=== PATIENT | male | born 1940 | race Caucasian/White ===

== ENCOUNTER 2019-05-05 14:34 | Emergency (ER) | payer OTHER, MEDICARE, BC ==
[~2019-05-05] VITALS: Ht 170.2 cm; Wt 77.1 kg
== END 2019-05-05 16:45 | disposition home or self-care (01) ==
LOC: ER 14:34
DX: S61.210A Laceration without foreign body of right index finger without damage to nail, initial encounter (principal); S20.419A Abrasion of unspecified back wall of thorax, initial encounter; W10.9XXA Fall (on) (from) unspecified stairs and steps, initial encounter; Z87.891 Personal history of nicotine dependence
CPT/HCPCS: 12001; 72070; 90471; 90714; 99283-25

== ENCOUNTER 2019-05-08 11:13 | Inpatient (IN) | payer MEDICARE, BC ==
[~2019-05-08] VITALS: Ht 172.7 cm; Wt 78.5 kg
--- NOTE | 2019-05-08 15:30 | NUR ---
REPORT RECEIVED FROM ER NURSE. NO ACUTE ISSUES UPON ARRIVAL TO MEDICAL UNIT. PATIENT NOTED TO HAVE BRUISING AND ABRASIONS ON HIS BACK FROM A FALL AT WORK EARLIER THIS WEEK. NO OTHER ISSUES NOTED AT THIS TIME. WILL CONTINUE TO MONITOR FOR CHANGES.
--- NOTE | 2019-05-08 18:32 | NUR ---
NO ACUTE ISSUES NOTED, PATIENT IS ALERT AND ORIENTED. NO CURRENT COMPLAINS OF PAIN OR DISCOMFORT NOTED. ECHO COMPLETE. WILL CONTINUE TO MONITOR FOR CHANGES.
[2019-05-09 04:51] LABS: Anion Gap 3 mmol/L (6-16); Blood Urea Nitrogen 19 mg/dL (8-24); Bun/Creatinine Ratio 22.5 (12.0-20.0); CO2, Blood 30 mmol/L (21-32); Calcium, Blood 8.5 mg/dL (8.5-10.1); Chloride, Blood 105 mmol/L (98-108); Creatinine, Blood 0.85 mg/dL (0.60-1.20); Glomerular Filtration Rate >60 (60-); Glucose, Blood 107 mg/dL (70-99); Potassium, Blood 4.1 mmol/L (3.5-5.5); Sodium, Blood 138 mmol/L (136-145)
--- NOTE | 2019-05-09 06:32 | NUR ---
SHIFT SUMMARY PT IS A 78 Y/O MALE, ADMITTED FOR AFIB WITH RVR. HE IS A&O X 4, AND INDEPENDENT IN THE ROOM. PER THE RADIO PERFORMER, THE PT WAS IN A-FLUTTER IN THE 120S THAT STARTED AT APPROXIMATELY 1730. HIS RATE CAME DOWN TO THE 80S AFTER HIS SCHEDULED METOPROLOL, AND STAYED IN THAT RANGE THROUGH THE NIGHT. ALL OTHER VITALS STABLE. PT REPORTED PAIN IN HIS LOWER BACK FROM A FALL AT WORK BEFORE ADMISSION, WHICH TYLENOL DID NOT CONTROL WELL. THE HOSPITALIST BRISEYDA TERRY WAS CONSULTED AT 2044, AND PO ULTRAM WAS ORDERED, WHICH CONTROLLED HIS PAIN WELL. NO COMPLAINTS OF CHEST PAIN "UNLESS I TWIST WRONG", SOB, OR NAUSEA. PT'S REPEAT TROPONIN WAS ELEVATED SLIGHTLY FROM PREVIOUS, FROM 0.038 TO 0.043. THE HOSPITALIST BRISEYDA TERRY WAS CONSULTED AT 2249, WITH NO CHANGES IN ORDERS OR LABS AT THIS TIME. NO OTHER ACUTE CHANGES IN PT CONDITION NOTED DURING THE NIGHT. WILL CONTINUE TO MONITOR AND TREAT PER EMAR UNTIL HAND OFF TO DAY SHIFT.
--- NOTE | 2019-05-09 08:01 | NUR ---
PATIENT WAS OFFERED A SHOWER AND HE DECLINED DUE TO POSSIBLY BEING DISCHARGED, PATIENT STATED HE DID NOT WANT TO TAKE A SHOWER HERE IF HE WAS GOING HOME.
--- NOTE | 2019-05-09 17:02 | NUR ---
PT IS A/OX3, PLEASANT AND COOPERATIVE, THE PT IS UP IND IN HIS ROOM, THE PT DENIED ANY CHEST PAIN, SOB, N/V T/O THE DAY, HOWEVER, THE PT WAS MEDICATED FOR CHRONIC BACK PAIN X1 TODAY, CARDOLGY CONSULTED ON THE PT, AND THE PT IS SCHEDULED FOR A ANGIOGRAM IN THE AM, PT IS TO BE NPO AFTER MN, PT APPEARS TO BE BREATHING EASILY ON RA, CALL LIGHT IN REACH
--- NOTE | 2019-05-10 06:27 | NUR ---
SHIFT SUMMARY PATIENT IS ALERT AND ORIENTED. ON ROOM AIR. ON TELE, A-FLUTTER IN THE 80'S PER PCU OIL EXPERT. NO CHEST PAIN NOTED THROUGHOUT THE NIGHT. UP INDEPENDENT IN ROOM. NPO SINCE MIDNIGHT. PLAN IS FOR PT TO HAVE ANGIOGRAM THIS AM. NO NEW CHANGES. VITALS STABLE.
--- NOTE | 2019-05-10 08:50 | NUR ---
PATIENT DID NOT EAT BREAKFAST THIS SHIFT DUE TO BEING NPO AT THIS TIME.
--- NOTE | 2019-05-10 10:15 | NUR ---
0910 THE PT WAS TAKEN TO THE MEDICAL OFFICE SECRETARY A/OX3, APPEARED TO BE BREATHING EASILY ON RA, ACCOMPANIED
--- NOTE | 2019-05-10 10:17 | NUR ---
REPORT REPORT GIVEN TO GWEN DICKEY RN, PTS BELONGINGS SENT TO PCU # 3
--- NOTE | 2019-05-10 10:26 | NUR ---
PT TO ROOM PCU 3 FROM COMMUNITY EDUCATION SPECIALIST AT 1020. TR BAND IN PLACE ON RIGHT RADIAL, SOFT,NONTENDER ABOVE AND BELOW, PULSE PRESENT, CAP REFILE >3 SEC, DENIES PAIN NUM/T IN HAND. NO BLEEDING OR SHADOWING NOTE. PT TO ROOM VIA WHEELCHAIR, SBA TO TRANSFER. PT A&Ox4. CALM AND COOPERATIVE WITH CARE. PT >92% ON RA. DENIES PAIN AND NAUSEA. VSS. WILL CONTINUE TO MONITOR.
--- NOTE | 2019-05-10 13:17 | NUR ---
NOT CHANGES TO RIGHT RADIAL, RELEASED 2CC. WILL CONTINUE TO MONITOR.
--- NOTE | 2019-05-10 14:50 | NUR ---
NOTIFIED DR BRAY FOR BP DROP ASKING ABOUT PARAMETERS FOR BP MEDS AND CLARIFICATION REGARD XARELTO. NEW ORDERS FOR HOLD LISINIRIL IF SPB <100 AND START XARELTO 20MG QPM THIS EVENING. WILL CONTINUE TO MONITOR.
--- NOTE | 2019-05-10 16:39 | NUR ---
NO CHANGES TO RIGHT RADIAL SITE. A TOTAL OF 10CC HAS BEEN TAKEN OUT. WILL CONTINUE TO MONITOR.
--- NOTE | 2019-05-10 17:00 | NUR ---
SHIFT SUMMARY PT A&Ox4. CALM AND COOPERATIVE WITH CARE. PT RESTING IN BED DURING SHIFT. UP SBA FOR ASSIST WITH RIGHT RADIAL SITE. PT FROM INFUSION PHARMACIST DURING SHIFT. NO CHANGES TO RADIAL SITE. TR BAND HAS AIR REMOVED. PT DENIES PAIN, SOB AND N/V DURING SHIFT. TELE A-FLUTTER IN 80'S DURING SHIFT. VSS. NO OTHER ACUTE CHANGES NOTED DURING SHIFT. WILL CONTINUE TO MONITOR.
--- NOTE | 2019-05-10 17:56 | NUR ---
TR BAND REMOVAL - RIGHT RADIAL SITE ALL AIR REMOVED FROM TR BAND PER PROTOCOL. TR BAND REMOVED. NO BLEEDING OR HEMATOMA NOTED AT SITE. PROXIMAL TO SITE SHADOWED AND SLIGHT SWELLING NOTED, COBAN PLACED AND WILL CONTINUE TO MONITOR. TEGADERM DRESSING PLACED TO SITE. ARM BOARD IN PLACE. EDUCATED AND REMINDED PT NOT TO USE RIGHT ARM AND HAND. WILL CONTINUE TO MONITOR.
--- NOTE | 2019-05-10 19:45 | NUR ---
Jay of Care: Patient alert and oriented x4, sitting upright in bed watching tv. C/o back pain 4-04/29, x1 prn Ultram given and heat pad applied. Repositioning also effect to manage back pain. Denies dyspnea/SOB, but appears slightly SOB with exertion, recovers quickly. VS wnl, heart rhythm per telemetry shows A-flutter, rate 60's. Peripheral IV x1 to lt AC patent and intact. Ambulating to bathroom to void without difficulty. Call light in reach, makes needs known. Will continue to monitor for pain, safety, comfort.
--- NOTE | 2019-05-11 06:27 | NUR ---
Shift Summary: Patient slept well throughout shift, easily roused via verbal stimuli. C/o back pain effectively managed with prn Ultram x1 dose. continues to deny pain, discomfort, SOB, or dyspnea. VSS, O2-92-96% on RA. Ambulating without difficulty to bathroom. Rt radial access remains WNL, no s/s of bleeding or hematoma. Rt hand color, temp, sensation remain wnl. Call light in reach, makes needs known. Will continue to monitor until report to day shift RN.
--- NOTE | 2019-05-11 08:37 | NUR ---
ASSUMED CARE OF PT AT 0700. PT RESTING IN BED, UP ON SIDE OF BED FOR BREAKFAST. PT A&OX4. CALM AND COOPERATIVE WITH CARE. PT REPORTS WANTING TO GO HOME THIS AM. PT DENIES PAIN. PT O2 >92% ON RA, BREATHING EVEN AND UNLABORED AT REST. PT REPORTS SOB WITH BEGINING OF ACTIVITY. TELE AFLUTTER IN 80'S. RIGHT RADIAL SITE NO S/SX OF BLEEDING OR HEMATOMA, TEGADERM IN PLACE ON PUNCTURE SITE. ARM BOARD IN PLACE, SENSTATION INTACT, <3 SEC CAP REFILL. VSS. WILL CONTINUE TO MONITOR.
[2019-05-11] MEDS ORDERED: LISI5 PO (08:48)
[2019-05-11] MEDS ORDERED: XARELTO20 MG PO (08:49)
[2019-05-11] MEDS ORDERED: METO25 PO (08:49)
--- NOTE | 2019-05-11 10:54 | NUR ---
DISCHARGE SUMMARY PT A&Ox4. PLEASANT; CALM AND COOPERATIVE WITH CARE. PT RESTING IN BED DURING SHIFT. IND IN ROOM. NO CHANGES TO RIGHT RADIAL SITE. PT DENIES PAIN, SOB AND NAUSEA. VSS. NO OTHER ACUTE CHANGES. PT EDUCATED ON DISCHARGE INSTUCTIONS, MEDICATIONS, FOLLOW UP APPOINTMENTS, CHF AND POST CATH CARE. PRESCRIPTIONS SENT OVER TO [facility] PER PT REQUEST. PT LEFT ROOM AT 1050. PT STABLE UPON DISCHARGE.
== END 2019-05-11 10:50 | disposition home or self-care (01) | DRG 286 ==
LOC: ER 11:13 → MEDS 11:14 → PCU 14:54 → MEDS 15:07 → PCU 05-10 09:31
PROVIDERS: ADMIT Hospitalist
PROC: 4A023N7 Measurement of Cardiac Sampling and Pressure, Left Heart, Percutaneous Approach (ICD-10-PCS; principal; 2019-05-10)
PROC: B211YZZ Fluoroscopy of Multiple Coronary Arteries using Other Contrast (ICD-10-PCS; 2019-05-10)
DX: I48.2 Chronic atrial fibrillation (principal); I50.31 Acute diastolic (congestive) heart failure; W19.XXXA Unspecified fall, initial encounter; K21.9 Gastro-esophageal reflux disease without esophagitis; M54.9 Dorsalgia, unspecified
CPT/HCPCS: 36415; 71045; 80048; 83880; 84145; 84443; 84484; 85025; 93005; 93010; 93306; 93458; 96374; 99152; 99153; 99284-25; C1769; C1894; G0378; J1644; J1940; J2250; J3010; J7030; Q9967

== ENCOUNTER 2019-06-08 06:15 | Day surgery (SDC) | payer MEDICARE, BC ==
[~2019-06-08 06:15] MED LIST: LISI5 PO; METO25 PO; XARELTO20 MG PO
--- NOTE | 2019-06-08 08:25 | NUR ---
PT IN SR ON ARRIVAL. CARDIOVERSION CANCELED. NOTIFIED.
== END 2019-06-08 22:42 | disposition home or self-care (01) ==
LOC: MHTC 06:15
DX: I48.92 Unspecified atrial flutter (principal); I44.0 Atrioventricular block, first degree; I44.7 Left bundle-branch block, unspecified; Z79.01 Long term (current) use of anticoagulants; Z53.09 Procedure and treatment not carried out because of other contraindication
CPT/HCPCS: 93005; 93010

== ENCOUNTER → 2022-04-24 | Outpatient (CLI) | payer BC, MEDICARE | END | disposition home or self-care (01) | LOC: LAB SHORT 12:30 → LAB 12:30 | DX: L29.9 Pruritus, unspecified (principal) | CPT/HCPCS: 87070; 87077; 87147; 87186; 87205 ==

== ENCOUNTER → 2022-08-25 | Outpatient (CLI) | payer BC ==
[~2022-08-25] MED LIST changes: +ATOR10 PO; +ELIQUIS5 M2 PO; +ENTRESTO 24 MG1 EACH PO; +METO25ER PO
== END | disposition home or self-care (01) ==
LOC: LAB SHORT 12:15 → LAB 12:15
DX: R10.9 Unspecified abdominal pain (principal)
CPT/HCPCS: 87086

== ENCOUNTER 2022-08-30 06:58 | Day surgery (SDC) | payer OTHER, MEDICARE ==
[~2022-08-30] VITALS: Ht 170.2 cm; Wt 72.7 kg
--- NOTE | 2022-08-30 11:09 | NUR ---
10CC AIR REMOVED FROM R WRIST TR BAND. -BLEEDING OR SWELLING.
== END 2022-08-30 12:53 | disposition home or self-care (01) ==
LOC: MHTC 06:58
DX: I11.0 Hypertensive heart disease with heart failure (principal); I50.9 Heart failure, unspecified; R93.1 Abnormal findings on diagnostic imaging of heart and coronary circulation; I25.10 Atherosclerotic heart disease of native coronary artery without angina pectoris; E78.00 Pure hypercholesterolemia, unspecified; I42.8 Other cardiomyopathies; I48.0 Paroxysmal atrial fibrillation; I48.92 Unspecified atrial flutter; I08.1 Rheumatic disorders of both mitral and tricuspid valves; I44.1 Atrioventricular block, second degree; Z88.2 Allergy status to sulfonamides; Z86.73 Personal history of transient ischemic attack (TIA), and cerebral infarction without residual deficits
CPT/HCPCS: 76937; 85347; 92978; 93454; 93571; 99152; 99153; A9270; C1769; C1887; C1894; J1644; J2250; J3010; J7030; J7050; Q9967

== ENCOUNTER 2023-04-25 09:25 | Day surgery (SDC) | payer BC, MEDICARE ==
[~2023-04-25] VITALS: Ht 170.2 cm; Wt 62.2 kg
[2023-04-25] VITALS (15 sets, daily range): BP systolic 74–123; BP diastolic 32–76
--- NOTE | 2023-04-25 13:44 | NUR ---
REPORT RECIEVED. PT SITTING UP IN BED TOLERATING PO FLUIDS. ON ROOM AIR. VSS. RATES PAIN 3/10
--- NOTE | 2023-04-25 14:25 | NUR ---
Patient up to Ambulate independently. Gait steady. Dressing to procedure site clean, dry, intact with no visible drainage, swelling, erythema or bruising noted. Discharge instructions reviewed with patient AND . Patient verbalizes understanding. Copy given to patient to take home. Discharged via wheelchair to private car for ride home.
== END 2023-04-25 14:37 | disposition home or self-care (01) ==
LOC: ORSCMMR 09:25 → ORD 10:45 → ORSCMMR 10:45
PROVIDERS: Surgery
PROC: 0YU50JZ Supplement Right Inguinal Region with Synthetic Substitute, Open Approach (ICD-10-PCS; principal; 2023-04-25 10:45)
DX: K40.90 Unilateral inguinal hernia, without obstruction or gangrene, not specified as recurrent (principal); D36.0 Benign neoplasm of lymph nodes; I25.10 Atherosclerotic heart disease of native coronary artery without angina pectoris; Z86.73 Personal history of transient ischemic attack (TIA), and cerebral infarction without residual deficits; K21.9 Gastro-esophageal reflux disease without esophagitis; I48.91 Unspecified atrial fibrillation; Z79.899 Other long term (current) drug therapy
CPT/HCPCS: 88305; C1781; J0690; J2250; J2704; J3010; J7120

== ENCOUNTER 2023-05-05 09:10 | Inpatient (IN) | payer BC, MEDICARE ==
[~2023-05-05] VITALS: Ht 167.6 cm; Wt 63.4 kg
[2023-05-05 10:04] LABS: BASOPHILS PERCENT AUTO 0 % (0-2); EOSINOPHILS ABSOLUTE AUTO 0.27 K/mm3 (0.00-0.68); EOSINOPHILS PERCENT AUTO 1 % (0-6); Hematocrit 34.5 % (37.0-53.0); Hemoglobin 10.9 g/dL (13.5-17.5); IMMATURE GRAN ABSOLUTE AUTO 0.15 K/mm3 (0.00-0.10); IMMATURE GRAN PERCENT AUTO 1 % (0-1); LYMPHOCYTES ABSOLUTE AUTO 0.96 K/mm3 (0.84-5.20); LYMPHOCYTES PERCENT AUTO 4 % (21-46); MONOCYTES ABSOLUTE AUTO 1.14 K/mm3 (0.16-1.47); MONOCYTES PERCENT AUTO 4 % (4-13); Mean Corpuscular HGB Conc 31.6 g/dL (31.5-36.5); Mean Corpuscular Volume 89 fL (80-100); Mean Platelet Volume 11.1 fL (9.1-12.4); NEUTROPHILS ABSOLUTE AUTO 24.24 K/mm3 (1.96-9.15); NEUTROPHILS PERCENT AUTO 90 % (41-73); Platelet Count 474 K/mm3 (150-400); RDW Coefficient Variation 13.7 % (11.7-14.2); RDW Standard Deviation 44.3 fL (35.1-46.3); Red Blood Cell Count 3.89 M/mm3 (4.30-5.90); White Blood Cell Count 26.86 K/mm3 (4.00-11.30)
[2023-05-05 10:16] LABS: Albumin, Blood 2.7 g/dL (3.4-5.0); Albumin/Globulin Ratio 0.6 (0.8-1.8); Bilirubin, Total 0.4 mg/dL (0.1-1.0); Bun/Creatinine Ratio 30.1 (12.0-20.0); Calcium, Blood 9.5 mg/dL (8.5-10.1); Creatinine, Blood 0.93 mg/dL (0.60-1.20); Globulin, Blood 4.4 g/dL (2.2-4.0); Total Protein, Blood 7.1 g/dL (6.4-8.2)
[2023-05-05 13:45] LABS: Source, Urine Clean Catch
[2023-05-05 13:56] LABS: Appearance, Urine Hazy (Clear); Bilirubin, Urine Neg (Neg); Blood, Urine 3+ (Neg); Color, Urine Yellow (P-Yellow); Glucose Qualitative, Urine Neg (Neg); Ketones, Urine 1+ (Neg); Leukocyte Esterase, Urine Neg (Neg); Nitrite, Urine Neg (Neg); Protein, Urine 2+ (Neg); Specific Gravity, Urine 1.025 (1.003-1.022); Urobilinogen, Urine NORM (Normal)
[2023-05-05 14:52] LABS: White Blood Cells, Urine 0-2 /hpf (0-5)
[2023-05-05 14:53] LABS: Squamous Epithelial Cells Few /hpf (Few)
[2023-05-05 14:54] LABS: Amorphous Light (0-Heavy); Bacteria Few /hpf; Mucus Light (0-Heavy)
[2023-05-05 15:06] VITALS: BP 93/60
--- NOTE | 2023-05-05 17:09 | NUR ---
ADMISSION AND SHIFT SUMMARY PATIENT AND FAMILY EDUCATED ON FIRE SAFETY AND POLICY RELATED TO FLAMMABLES AND COMBUSTABLE ITEMS. PATIENT ALERT AND INTERACTIVE. ABLE TO COMMUNICATE NEEDS. PATIENT CONTINUES TO SPIT UP THICK SECRETIONS AND COMPLAINS OF PRESSURE IN EPIGASTRIC AREA. PATIENT STATES HE HAS NOT BEEN ABLE TO EAT OR KEEP EVEN LIQUIDS DOWN FOR A LONG TIME EVEN BEFORE HIS HERNIA SURGERY. PATIENT ABLE TO AMBULATE TO THE BATHROOM WITH STAND BY ASSIST. VSS. GI TO CONSULT BUT NOT AVAILABLE UNTIL THE . DR. BRINK NOTIFIED.
[2023-05-05 20:32] VITALS: BP 108/58
[2023-05-06 03:24] VITALS: BP 94/56
--- NOTE | 2023-05-06 04:48 | NUR ---
SHIFT SUMMARY PATIENT ALERT, PLEASANT AFFECT. DENIES PAIN NOR DISCOMFORT THIS SHIFT. DENIES FEELING SOB NOR DIZZY, MADDIE AFTER AMBULATING TO AND BACK FROM BATHROOM. CONTINUES TO HAVE SOFT BPs. ON TELE, INTERMITTANT AFIB TO SR 65, OCCATIONAL SINUS BETHANIE 53-58 WHILE ASLEEP. DID HAVE PRODUCTIVE COUGH BRIEFLY AT BEGINING OF SHIFT, CLEAR MUCUS. NO ACUTE CHANGES OVERNIGHT. PATIENT EDUCATED ON FIRE SAFETY AND RISK OF INJURY WHILE OXYGEN IN USE, VERBALIZED UNDERSTANDING, DENIES SMOKING NOR ACCESS TO SOURCES OF IGNITION. BED IN LOW POSITION, CALL LIGHT IN REACH.
[2023-05-06 05:49] LABS: BASOPHILS ABSOLUTE AUTO 0.14 K/mm3 (0.00-0.23); BASOPHILS PERCENT AUTO 1 % (0-2); EOSINOPHILS ABSOLUTE AUTO 1.27 K/mm3 (0.00-0.68); EOSINOPHILS PERCENT AUTO 5 % (0-6); Hematocrit 31.2 % (37.0-53.0); Hemoglobin 9.6 g/dL (13.5-17.5); IMMATURE GRAN ABSOLUTE AUTO 0.12 K/mm3 (0.00-0.10); IMMATURE GRAN PERCENT AUTO 1 % (0-1); LYMPHOCYTES ABSOLUTE AUTO 1.56 K/mm3 (0.84-5.20); LYMPHOCYTES PERCENT AUTO 7 % (21-46); MONOCYTES ABSOLUTE AUTO 1.13 K/mm3 (0.16-1.47); MONOCYTES PERCENT AUTO 5 % (4-13); Mean Corpuscular HGB 27.7 pg (26.0-34.0); Mean Corpuscular HGB Conc 30.8 g/dL (31.5-36.5); Mean Corpuscular Volume 90 fL (80-100); Mean Platelet Volume 11.7 fL (9.1-12.4); NEUTROPHILS ABSOLUTE AUTO 19.59 K/mm3 (1.96-9.15); NEUTROPHILS PERCENT AUTO 82 % (41-73); Platelet Count 429 K/mm3 (150-400); RDW Standard Deviation 46.1 fL (35.1-46.3); Red Blood Cell Count 3.46 M/mm3 (4.30-5.90); White Blood Cell Count 23.81 K/mm3 (4.00-11.30)
[2023-05-06 06:15] LABS: Bun/Creatinine Ratio 26.3 (12.0-20.0); Calcium, Blood 9.1 mg/dL (8.5-10.1); Creatinine, Blood 0.84 mg/dL (0.60-1.20)
[2023-05-06 07:39] VITALS: BP 98/59
--- NOTE | 2023-05-06 12:31 | NUR ---
PT DR BRINK, SECOND ORDER OF NS AT 125 IS DUPLICATE ORDER. CANCEL
--- NOTE | 2023-05-06 16:22 | NUR ---
0700 PT DENIES ANY INFLAMMABLE ITEMS
[2023-05-06 16:27] VITALS: BP 95/65
--- NOTE | 2023-05-06 16:41 | NUR ---
CALLED DR LION, RE BP AFTER ONE BAG IVF. DR ORDER ONE MORE BAG AT 125. DONE
--- NOTE | 2023-05-06 18:46 | NUR ---
PT QUITE PLEASANT TODAY. NO C/O PAIN NOTED. DR ORDERED IVF FOR ONE BAG THIS AM. SECOND ORDER PLACED R/T SOFT BP THIS AFT. PT DIET UPDATED. STATES STILL STRUGGLES TO EAT. RECOMMENDED EAT MEAT VEG FIRST THEN EAT BREAD. AT BEDSIDE TODAY. NO NEW CONCERNS NOTED. BED IN LOW POSITION, HARRY LITE IN REACH, CALLS APPROP
[2023-05-06 20:35] VITALS: BP 98/69
[2023-05-07 02:25] VITALS: BP 99/71
--- NOTE | 2023-05-07 04:53 | NUR ---
PATIENT REMAINES ALERT AND ORIENTED X4, COOPERATIVE WITH CARE. BP SOFT, BUT OTHERWISE VSS. 2X CALLS FROM TELE ALERTING ME A A SHORT RUN OF VTACK, AFIB OTHERWISE. PATIENT DOES BECOME TACKYCARDIC WITH AMBULATION SO WE KEPT HIS WALKS SHORT. HE REMAINED ASYMPTOMATIC, AND RECOVERED WELL. IV SALINE LOCKED AFTER 1X 1L NS. NO OTHER ISSUES TO REPORT.
[2023-05-07 07:48] VITALS: BP 89/61
[2023-05-07 07:51] LABS: BASOPHILS ABSOLUTE AUTO 0.11 K/mm3 (0.00-0.23); BASOPHILS PERCENT AUTO 1 % (0-2); EOSINOPHILS PERCENT AUTO 8 % (0-6); Hematocrit 26.8 % (37.0-53.0); Hemoglobin 8.5 g/dL (13.5-17.5); IMMATURE GRAN ABSOLUTE AUTO 0.08 K/mm3 (0.00-0.10); IMMATURE GRAN PERCENT AUTO 0 % (0-1); LYMPHOCYTES ABSOLUTE AUTO 1.06 K/mm3 (0.84-5.20); LYMPHOCYTES PERCENT AUTO 5 % (21-46); MONOCYTES ABSOLUTE AUTO 1.27 K/mm3 (0.16-1.47); MONOCYTES PERCENT AUTO 6 % (4-13); Mean Corpuscular HGB Conc 31.7 g/dL (31.5-36.5); Mean Corpuscular Volume 88 fL (80-100); Mean Platelet Volume 11.7 fL (9.1-12.4); NEUTROPHILS ABSOLUTE AUTO 18.01 K/mm3 (1.96-9.15); NEUTROPHILS PERCENT AUTO 81 % (41-73); Platelet Count 351 K/mm3 (150-400); RDW Coefficient Variation 13.9 % (11.7-14.2); RDW Standard Deviation 44.9 fL (35.1-46.3); Red Blood Cell Count 3.04 M/mm3 (4.30-5.90); White Blood Cell Count 22.23 K/mm3 (4.00-11.30)
[2023-05-07 08:50] LABS: Bun/Creatinine Ratio 26.2 (12.0-20.0); Calcium, Blood 8.4 mg/dL (8.5-10.1); Creatinine, Blood 0.76 mg/dL (0.60-1.20)
[2023-05-07 14:15] LABS: Hematocrit 29.9 % (37.0-53.0); Hemoglobin 9.4 g/dL (13.5-17.5)
--- NOTE | 2023-05-07 18:11 | NUR ---
SHIFT SUMMARY: PT A/O X 4, STANDBY ASSIST WITH GB/WALKER. PT PLEASANT AND COOPERATIVE. PT CONTINUES TO EXPERIENCE DIFFICULTY SWALLOWING, NO CHOKING INCIDENCES TODAY. PT NATHANIEL STOPPED FOR PROCEDURE ENDOSCOPY SCHEDULED ON SATURDAY. PT HAD SOFT BP'S AND WAS ASYMPTOMATIC. NO REPORTS FROM TELE. PT EDUCATED ON DANGERS OF SMOKING AND USING IGNITION SOURCES WHILE IN HOSPITAL. PT VU. PT HAD NO EVIDENCE OF USING IGNITION SOURCES WHILE ROUNDING.
--- NOTE | 2023-05-07 18:26 | NUR ---
REPORT GIVEN TO JAVIER KNOX
[2023-05-07 19:17] VITALS: BP 116/72
--- NOTE | 2023-05-08 04:18 | NUR ---
SHIFT SUMMARY PATIENT HAD NO ACUTE CHANGES. AXO X4 AND ONE ASSIST TO BSC W/GB. PIV REMAINS INTACT. TELE MONITOR AFIB 87. ON ROOM AIR. VSS/AFEBRILE. DENIES CHEST PAIN, SOB, AND N/V. REPORTS TAKING A FEW HOURS TO EAT DINNER. EDUCATED ON DANGERS OF SMOKING AND USING IGNITION SOURCE WHILE IN HOSPITAL. DENIES HAVING IGNITION SOURCE AND NO EVIDENCE OF IGNITION SOURCE. COOPERATIVE WITH CARE. CALL LIGHT IN REACH. BED IN LOWEST POSITION. WILL CONTINUE TO MONITOR UNTIL DAY SHIFT NURSE ASSUMES CARE.
[2023-05-08 04:37] VITALS: BP 98/60
[2023-05-08 05:29] LABS: BASOPHILS PERCENT AUTO 0 % (0-2); EOSINOPHILS ABSOLUTE AUTO 2.29 K/mm3 (0.00-0.68); EOSINOPHILS PERCENT AUTO 10 % (0-6); Hemoglobin 8.3 g/dL (13.5-17.5); IMMATURE GRAN ABSOLUTE AUTO 0.12 K/mm3 (0.00-0.10); IMMATURE GRAN PERCENT AUTO 1 % (0-1); LYMPHOCYTES ABSOLUTE AUTO 1.21 K/mm3 (0.84-5.20); LYMPHOCYTES PERCENT AUTO 5 % (21-46); MONOCYTES ABSOLUTE AUTO 1.38 K/mm3 (0.16-1.47); MONOCYTES PERCENT AUTO 6 % (4-13); Mean Corpuscular HGB 27.7 pg (26.0-34.0); Mean Corpuscular HGB Conc 31.9 g/dL (31.5-36.5); Mean Corpuscular Volume 87 fL (80-100); Mean Platelet Volume 11.3 fL (9.1-12.4); NEUTROPHILS ABSOLUTE AUTO 17.63 K/mm3 (1.96-9.15); NEUTROPHILS PERCENT AUTO 78 % (41-73); Platelet Count 358 K/mm3 (150-400); RDW Standard Deviation 43.4 fL (35.1-46.3); White Blood Cell Count 22.73 K/mm3 (4.00-11.30)
[2023-05-08 06:53] LABS: Bun/Creatinine Ratio 21.4 (12.0-20.0); Calcium, Blood 8.3 mg/dL (8.5-10.1); Creatinine, Blood 0.75 mg/dL (0.60-1.20); Potassium, Blood 3.8 mmol/L (3.5-5.5)
[2023-05-08 07:43] VITALS: BP 104/73
[2023-05-08 08:10] LABS: IRON BIND.CAP.(TIBC) 160 ug/dL (250-450); IRON SATURATION 9 % (15-55); IRON, SERUM 14 ug/dL (38-169); UIBC 146 ug/dL (111-343)
[2023-05-08 09:10] LABS: FERRITIN 90 ng/mL (30-400)
[2023-05-08 16:12] VITALS: BP 104/70
--- NOTE | 2023-05-08 19:24 | NUR ---
SHIFT SUMMARY- PT IS A/O, PLESANT AND COOPERATIVE. HE IS INDEPENDENT IN THE ROOM. HE IS HAVING DIFFICULTY EATING. HE HAD SEVERAL BOUTS OF VOMITING, BUT DENIED NAUSEA. C/O EPIGASTRIC DISCOMFORT. TYLENOL GIVEN AND WAS EFFECTIVE. NPO AFTER MIDNIGHT FOR AN UPPER SCOPE TOMORROW. HIS BED IS IN THE LOW POSITON AND CALL LIGHT IS WITIN REACH.
[2023-05-09] VITALS (21 sets, daily range): BP systolic 89–103; BP diastolic 58–77
--- NOTE | 2023-05-09 03:59 | NUR ---
SHIFT SUMMARY. SHIFT HAS BEEN UNREMARKABLE. PT IS AOX4, PLEASANT, COOPERATIVE WITH CARE. NO PAIN REPORTED THIS SHIFT. HAS BEEN SLEEPING THROUGH MOST OF SHIFT SINCE 2100 MED PASS. NPO SINCE MIDNIGHT PENDING PROCEDURE TODAY. CALLS APPROPRIATELY. INDEPENDENT WITHIN ROOM. BED LOCKED IN LOWEST POSITION. CALL LIGHT LEFT WITHIN REACH.
[2023-05-09 05:29] LABS: BASOPHILS ABSOLUTE AUTO 0.07 K/mm3 (0.00-0.23); BASOPHILS PERCENT AUTO 0 % (0-2); EOSINOPHILS ABSOLUTE AUTO 2.16 K/mm3 (0.00-0.68); EOSINOPHILS PERCENT AUTO 9 % (0-6); Hematocrit 26.8 % (37.0-53.0); Hemoglobin 8.4 g/dL (13.5-17.5); IMMATURE GRAN ABSOLUTE AUTO 0.14 K/mm3 (0.00-0.10); IMMATURE GRAN PERCENT AUTO 1 % (0-1); LYMPHOCYTES ABSOLUTE AUTO 1.06 K/mm3 (0.84-5.20); LYMPHOCYTES PERCENT AUTO 5 % (21-46); MONOCYTES ABSOLUTE AUTO 1.25 K/mm3 (0.16-1.47); MONOCYTES PERCENT AUTO 5 % (4-13); Mean Corpuscular HGB 27.2 pg (26.0-34.0); Mean Corpuscular HGB Conc 31.3 g/dL (31.5-36.5); Mean Corpuscular Volume 87 fL (80-100); Mean Platelet Volume 11.4 fL (9.1-12.4); NEUTROPHILS ABSOLUTE AUTO 18.74 K/mm3 (1.96-9.15); NEUTROPHILS PERCENT AUTO 80 % (41-73); Platelet Count 358 K/mm3 (150-400); RDW Standard Deviation 43.1 fL (35.1-46.3); Red Blood Cell Count 3.09 M/mm3 (4.30-5.90); White Blood Cell Count 23.42 K/mm3 (4.00-11.30)
[2023-05-09 06:05] LABS: Bun/Creatinine Ratio 20.9 (12.0-20.0); Calcium, Blood 8.8 mg/dL (8.5-10.1); Creatinine, Blood 0.77 mg/dL (0.60-1.20); Potassium, Blood 3.9 mmol/L (3.5-5.5)
--- NOTE | 2023-05-09 15:34 | NUR ---
PT HAS 22G IV TO RIGHT HAND THAT FLUSHES WELL.
--- NOTE | 2023-05-09 15:55 | NUR ---
DIFFICULT IV START. ATTEMPTED BY MULTIPLE NURSES. ULTIMATELY, GOT 18G IV IN L AC THAT FLUSHES WELL AND FLOWS TO GRAVITY.
--- NOTE | 2023-05-09 16:39 | NUR ---
05/09/[address] WALKER; SEE ANESTHESIA RECORDS.
--- NOTE | 2023-05-09 19:05 | NUR ---
PT TRANSFERED TO ICU 3 BED AT 1900, BEDSIDE REPORT GIVEN TO NICOLLE KNOX.
--- NOTE | 2023-05-09 19:26 | NUR ---
BRADYCARDIA AND TRANSFER TO ICU: PATIENT RETURNED TO ROOM AROUND 17:30 FROM PROCEDURE. DURING THE PROCEDURE, RN WAS NOTIFIED BY TELEMETRY THAT THE PATIENT WAS EXPERIENCING BRADYCARDIA LOW 24 BPM. DIRECTOR OF LEARNING REPORTED THAT THEY WERE AWARE AND TAKING CARE OF THIS FOR THE PATIENT. UPON RETURNING TO THE ROOM, PATIENT CONTINUED TO EXPERIENCE BRADYCARDIA IN THE MID-20S. PER WAFER SUBSTRATE TESTER, THE LENGTH OF TIME THAT THE PATIENT WAS IN THE 40'S, THEN TO THE 20S, THEN BACK TO THE 40', WAS AT OR OVER 30 SECONDS. PATIENT REPORTED FEELING "FUNNY" AND "HUNGRY". PATIENT DENIED CHEST PAIN, SHORTNESS OF BREATH OR LIGHTHEADEDNESS. PATIENT REPORTED SOME CHEST PRESSURE THAT HAS BEEN PRESENT SINCE PRIOR TO THIS ADMISSION RELATED TO SWALLOWING. PATIENT CONTINUED TO BE ALERT AND AT BASELINE MENTATION. FAMILY AT BEDSIDE. DISCUSSED WITH DR. LACKEY AND DR. DEAN. NEW ORDERS FROM DR. LACKEY TO TRANSFER TO PCU. RELATED TO STAFFING, PATIENT WAS TRANSFERED TO ICU. REPORT CALLED TO ABILIO RUIZ.
--- NOTE | 2023-05-09 20:22 | NUR ---
ASSUMED CARE PT ARRIVED ON UNIT AT 1849. PT IS A&O X4; SPO2 >92% ON RA; MAP >65; AND HR IN THE 100-110'S. PT STATES HE HAS SOME CP THAT HAS BEEN THERE FOR "SEVERAL MONTHS" AND WORSENS W/ SWALLOWING/LAYING DOWN. DENIES SOB, NAUSEA, NUMBNESS, OR TINGLING. PT STATES HE FEELS "SOMEWHAT WEAK", BUT OTHERWISE HAS NO COMPLAINTS.
--- NOTE | 2023-05-09 22:00 | NUR ---
UPDATE PT EDUCATED ON IGNITION RISK W/ OXYGEN USE. DENIES HAVING ANY IGNITION SOURCES.
--- NOTE | 2023-05-09 22:11 | NUR ---
UPDATE PT REQUESTED SCD'S TO BE REMOVED. EDUCATION GIVEN ON PURPOSE OF SCD'S. ADVISED PT TO REPOSITION SELF FREQUENTLY AND MOVE LEGS RANDOMLY.
[2023-05-10] VITALS (27 sets, daily range): BP systolic 80–128; BP diastolic 57–96
[2023-05-10 02:58] LABS: BASOPHILS ABSOLUTE AUTO 0.06 K/mm3 (0.00-0.23); BASOPHILS PERCENT AUTO 0 % (0-2); EOSINOPHILS ABSOLUTE AUTO 0.45 K/mm3 (0.00-0.68); EOSINOPHILS PERCENT AUTO 2 % (0-6); Hemoglobin 9.2 g/dL (13.5-17.5); IMMATURE GRAN ABSOLUTE AUTO 0.09 K/mm3 (0.00-0.10); IMMATURE GRAN PERCENT AUTO 0 % (0-1); LYMPHOCYTES ABSOLUTE AUTO 1.05 K/mm3 (0.84-5.20); LYMPHOCYTES PERCENT AUTO 5 % (21-46); MONOCYTES ABSOLUTE AUTO 1.16 K/mm3 (0.16-1.47); MONOCYTES PERCENT AUTO 5 % (4-13); Mean Corpuscular HGB 27.6 pg (26.0-34.0); Mean Corpuscular HGB Conc 31.7 g/dL (31.5-36.5); Mean Corpuscular Volume 87 fL (80-100); Mean Platelet Volume 10.7 fL (9.1-12.4); NEUTROPHILS ABSOLUTE AUTO 19.91 K/mm3 (1.96-9.15); NEUTROPHILS PERCENT AUTO 88 % (41-73); Platelet Count 360 K/mm3 (150-400); RDW Coefficient Variation 14.1 % (11.7-14.2); RDW Standard Deviation 44.3 fL (35.1-46.3); Red Blood Cell Count 3.33 M/mm3 (4.30-5.90); White Blood Cell Count 22.72 K/mm3 (4.00-11.30)
[2023-05-10 03:19] LABS: Bun/Creatinine Ratio 18.9 (12.0-20.0); Creatinine, Blood 0.85 mg/dL (0.60-1.20); Potassium, Blood 4.2 mmol/L (3.5-5.5)
--- NOTE | 2023-05-10 05:30 | NUR ---
SHIFT SUMMARY PT RESTED QUIETLY T/O NIGHT. CONTINUES TO DENY SOB OR NAUSEA. SPO2 >92% ON RA; MAP >65. PT'S ONLY COMPLAINT IS HE'S "TIRED". NO ACUTE EVENTS OVERNIGHT.
--- NOTE | 2023-05-10 07:00 | NUR ---
ASSUMED CARE PATIENT LYING IN BED WITH EYES CLOSED. BELONGINGS IN CHAIR BESIDE BED. NO VISITORS AT THIS TIME. MONITOR SHOWS AFIB WITH RATE 100'S. NO MEDICATIONS INF AT THIS TIME. REPORT RECEIVED FROM ABILIO VALVERDE
--- NOTE | 2023-05-10 08:13 | NUR ---
RESTART ELIQUIS SPOKE WITH DR. BRINK DURING ROUNDS REGARDING PATIENT'S DC'D ELIQUIS ORDER. VERBAL ORDER RECEIVED TO RESTART ELIQUIS AT PREVIOUS DOSING.
--- NOTE | 2023-05-10 10:00 | NUR ---
HR 230 WHILE PATIENT WAS UP IN ROOM WASHING FACE AND BRUSHING TEETH, HR INCREASED TO 230'S. UPON ENTERING ROOM PATIENT WAS SITTING ON SIDE OF BED. WHEN ASSESSED PATIENT STATES HE FEELS SHORT OF BREATH AND TIRED. ASSISTED PATIENT BACK TO BED TO LAY DOWN. HR RETURNED TO 120'S-150'S WITH REST. CARDIOLOGY CONTACTED TO NOTIFY OF EVENT. BP REMAINED STABLE WITH MAPS GREATER THAN 65. PATIENT'S SYMPTOMS RESOLVED WITH REST. NO NEW ORDERS FROM DR. KEARNEY (CARDIOLOGY).
--- NOTE | 2023-05-10 11:19 | NUR ---
Spiritual Care Attempted. Pt. is awake in bed and initially welcomes my visit. After introductions the Pt. verbalized that this might not be a good time to visit, and verbalized gratitude for the spiritual care attempt. Will remain available to the Pt.
--- NOTE | 2023-05-10 19:28 | NUR ---
SHIFT SUMMARY PATIENT HAD ONE EPISODE OF TACHYCARDIA-SEE PREVIOUS NURSE NOTE. NO OTHER TACHYCARDIC EVENTS DURING THE SHIFT. NO BRADYCARDIC EVENTS DURING SHIFT. PATIENT TOLERATED UP TO CHAIR WELL. DECREASED APPETITE. CT SCAN OF CHEST COMPLETED. NATHANIEL REMAINS DC'D AT THIS TIME DUE TO BLEEDING RISK. NO OTHER CHANGES DURING SHIFT.
--- NOTE | 2023-05-10 19:40 | NUR ---
ASSUMED CARE OF PT AT 1900. BEDSIDE REPORT DONE. PT IS ALERT AND ORIENTED. PLEASANT AND COOPERATIVE. PARTICIPATES IN BEDSIDE REPORT. IN NO DISTRESS. AFIB RATE CONTROLLED IN 80'S AND 90'S. REPORT CALLED TO ABILIO SPRING. ALLOWED FOR QUESTIONS. CALLED PT'S TO INFORM HER OF TRANSFER. PT ACCEPTING AND UNDERSTANDING TRANSFER TO PCU ROOM 19.
--- NOTE | 2023-05-10 20:21 | NUR ---
ASSUMED PT CARE FROM MERCEDZE KNOX IN ICU. PT TRANSFERED VIA WHEELCHAIR, ABLE TO AMBULATE FROM TO BED. A&OX4. HR SINUS TACH IN THE 110'S. DENIES ANY CHEST PAIN/PRESSURE AT THIS TIME. REPORTS PAIN WITH SWALLOWING. COUGHING UP MODERATE AMOUNTS OF CLEAR, SPUTUM AT THIS TIME. LUNG SOUNDS CLEAR BILATERALLY. BP SOFT, NOTED WITH RECORDED VITAL SIGNS. CALL LIGHT IN REACH.
[2023-05-11 00:51] VITALS: BP 90/58
[2023-05-11 03:53] VITALS: BP 90/55
--- NOTE | 2023-05-11 06:35 | NUR ---
SHIFT SUMMARY: NO ACUTE CHANGES NOTED THROUGHOUT SHIFT. SLEEPING IN BED WITH EYES CLOSED MAJORITY OF SHIFT. CALL LIGHT IN REACH. DENIES NEEDS.
[2023-05-11 07:40] LABS: Hematocrit 29.5 % (37.0-53.0); Hemoglobin 9.5 g/dL (13.5-17.5); Mean Corpuscular HGB 27.7 pg (26.0-34.0); Mean Corpuscular HGB Conc 32.2 g/dL (31.5-36.5); Mean Corpuscular Volume 86 fL (80-100); Mean Platelet Volume 10.7 fL (9.1-12.4); Platelet Count 406 K/mm3 (150-400); RDW Coefficient Variation 14.1 % (11.7-14.2); RDW Standard Deviation 43.8 fL (35.1-46.3); Red Blood Cell Count 3.43 M/mm3 (4.30-5.90); White Blood Cell Count 24.64 K/mm3 (4.00-11.30)
[2023-05-11 07:54] LABS: Bun/Creatinine Ratio 20.9 (12.0-20.0); Creatinine, Blood 0.76 mg/dL (0.60-1.20); Potassium, Blood 4.1 mmol/L (3.5-5.5)
[2023-05-11 08:23] VITALS: BP 91/61
[2023-05-11 08:41] LABS: BASOPHILS PERCENT MAN 0 % (0-2); EOSINOPHILS ABSOLUTE MAN 0.98 K/mm3 (0.00-0.68); EOSINOPHILS PERCENT MAN 4 % (0-6); LYMPHOCYTES ABSOLUTE MAN 0.24 K/mm3 (0.84-5.20); LYMPHOCYTES PERCENT MAN 1 % (21-46); MONOCYTES ABSOLUTE MAN 0.73 K/mm3 (0.16-1.47); MONOCYTES PERCENT MAN 3 % (4-13); NEUTROPHILS ABSOLUTE MAN 22.66 K/mm3 (1.96-9.15); SEG NEUTROPHILS PERCENT MAN 92 % (41-73); TOTAL CELLS COUNTED 100
[2023-05-11 13:04] VITALS: BP 100/56
[2023-05-11 16:45] VITALS: BP 95/64
--- NOTE | 2023-05-11 17:27 | NUR ---
PT HAS BEEN RESTING WELL IN BED T/O THE DAY. HE HAS BEEN UP TO BATHROOM WITHOUT ISSUES TODAY. SOFT PRESSURES NOTED TODAY BUT OTHERWISE VSS. DENES CP OR SOB. PER DR BRINK PT WILL BE GOING WITH DR SHARMA TOMORROW SO PT WILL BE NPO AT MIDNIGHT TONIGHT. PT TOLERATING FULL LIQUID DIET WELL. PT AND FAMILY ARE AWARE OF THE NO SMOKING IN ROOMS, PT AND FAMILY EXPRESSED UNDERSTANDING THAT NO IGNITION SOURCES ARE ALLOWED IN HOSPITAL ROOMS.
[2023-05-11 20:24] VITALS: BP 99/77
--- NOTE | 2023-05-11 21:04 | NUR ---
ASSUMED PT CARE FROM LETICIA KNOX ON . A&OX4. DENIES ANY SOB OR CHEST PAIN/PRESSURE. HR SR IN THE 90'S-100'S. O2 > 92% ON RA. BP SOFT, SEE RECORDED VITAL SIGNS. ENTRESTO HELD DUE TO MEDICATION PARAMETERS. PT REPORTS CONTINUED DIFFICULTY SWALLOWING STATING "IT FEELS LIKE A ROCK SITTING THERE" ANY INTAKE. MEDICATED FORBACK PAIN, SEE EMAR. WARM BLANKE PROVIDED FOR COMFORT. DENIES FURTHER NEEDS. CALL LIGHT IN REACH.
[2023-05-12] VITALS (20 sets, daily range): BP systolic 76–99; BP diastolic 54–77
[2023-05-12 04:04] LABS: BASOPHILS ABSOLUTE AUTO 0.12 K/mm3 (0.00-0.23); BASOPHILS PERCENT AUTO 1 % (0-2); EOSINOPHILS ABSOLUTE AUTO 1.63 K/mm3 (0.00-0.68); EOSINOPHILS PERCENT AUTO 7 % (0-6); Hematocrit 28.8 % (37.0-53.0); Hemoglobin 9.2 g/dL (13.5-17.5); IMMATURE GRAN ABSOLUTE AUTO 0.12 K/mm3 (0.00-0.10); IMMATURE GRAN PERCENT AUTO 1 % (0-1); LYMPHOCYTES ABSOLUTE AUTO 1.24 K/mm3 (0.84-5.20); LYMPHOCYTES PERCENT AUTO 5 % (21-46); MONOCYTES ABSOLUTE AUTO 1.21 K/mm3 (0.16-1.47); MONOCYTES PERCENT AUTO 5 % (4-13); Mean Corpuscular HGB 27.4 pg (26.0-34.0); Mean Corpuscular HGB Conc 31.9 g/dL (31.5-36.5); Mean Corpuscular Volume 86 fL (80-100); Mean Platelet Volume 10.7 fL (9.1-12.4); NEUTROPHILS ABSOLUTE AUTO 19.69 K/mm3 (1.96-9.15); NEUTROPHILS PERCENT AUTO 82 % (41-73); Platelet Count 407 K/mm3 (150-400); RDW Standard Deviation 43.7 fL (35.1-46.3); Red Blood Cell Count 3.36 M/mm3 (4.30-5.90); White Blood Cell Count 24.01 K/mm3 (4.00-11.30)
--- NOTE | 2023-05-12 12:11 | NUR ---
05/12/23 1211 Cleopatra Cueva History, Chart, Medications and Allergies reviewed before start of procedure. 3-LEAD EKG REVIEWED WITH PHYSICIAN PRIOR TO START OF PROCEDURE. MONITOR INTACT WITH CONTINUOUS PULSE OXIMETRY, CONTINUOUS END TITAL CO2, AND INTERMITTENT BLOOD PRESSURE. O2 VIA POM 10L INTACT THROUGHOUT SEDATION/PROCEDURE. SEE DR. PLASENCIA RECORDS FOR DETAILS.
--- NOTE | 2023-05-12 14:11 | NUR ---
PT RETURNS FROM OR WITH PEG TUBE PLACED. THERE IS NO ACTIVE BLEEDING NOTED AT THE SITE. PER DR DEAN THERE SHOULD BE NO USE OF THE PEG TUBE FOR 4 HOURS POST PLACEMENT.
--- NOTE | 2023-05-12 17:58 | NUR ---
PT WITH SOFT PRESSURES T/O THE DAY. DURING HIS PEG TUBE PLACEMENT OR STAFF STATES THAT PT BECAME BRADYCARDIC, THIS HAS RESOLVED BY THE TIME PT ARRIVED TO THE UNIT, AND NO ADDITIONAL BRADYCARDIA NOTED. PT'S PRESSURES HAVE BECOME MORE SOFT SINCE RETURNING TO ROOM, AND NOW COMPLAINS OF RIGHT SIDED WEAKNESS AND TINGLING TO RIGHT SIDE. DR TREJO IS CALLED, NEW ORDER WAS OBTAINED FOR 500ML BOLUS OF LR.
--- NOTE | 2023-05-12 20:22 | NUR ---
ASSUMED PT CARE FROM LETICIA KNOX ON . A&OX4. DENYING ANY SOB OR CHEST PRESSURE THIS EVENING. REPORTS OCCASIONAL SHARP MIDSTERNAL CHEST PAIN THAT HE STATES RESOLVES MOMENTARILY. DENIES ANY AT THIS TIME. WILL MONITOR. HR A-FIB IN THE 80'S. SOFT BP'S, SEE VITAL SIGNS RECORD. 500 ML FLUID BOLUS COMPLETED AT SHIFT CHANGE. MAP IS > 65 AT THIS TIME, WILL MONITOR. DENIES ANY DIZZIENESS/LIGHTHEADEDNESS. DENIES NAUSEA, HYPOACTIVE BOWEL TONES NOTED. PEG TUBE IN PLACED WITH C/D/I DRESSING COVERING. DENIES PAIN IN ABDOMEN. DENIES FURTHER NEEDS AT THIS TIME. CALL LIGHT IN REACH.
[2023-05-13] VITALS (11 sets, daily range): BP systolic 89–122; BP diastolic 52–75
[2023-05-13 04:08] LABS: BASOPHILS ABSOLUTE AUTO 0.08 K/mm3 (0.00-0.23); BASOPHILS PERCENT AUTO 0 % (0-2); EOSINOPHILS ABSOLUTE AUTO 0.85 K/mm3 (0.00-0.68); EOSINOPHILS PERCENT AUTO 3 % (0-6); Hematocrit 29.1 % (37.0-53.0); Hemoglobin 9.2 g/dL (13.5-17.5); IMMATURE GRAN ABSOLUTE AUTO 0.13 K/mm3 (0.00-0.10); IMMATURE GRAN PERCENT AUTO 1 % (0-1); LYMPHOCYTES ABSOLUTE AUTO 1.23 K/mm3 (0.84-5.20); LYMPHOCYTES PERCENT AUTO 5 % (21-46); MONOCYTES ABSOLUTE AUTO 1.18 K/mm3 (0.16-1.47); MONOCYTES PERCENT AUTO 5 % (4-13); Mean Corpuscular HGB 27.5 pg (26.0-34.0); Mean Corpuscular HGB Conc 31.6 g/dL (31.5-36.5); Mean Corpuscular Volume 87 fL (80-100); Mean Platelet Volume 11.1 fL (9.1-12.4); NEUTROPHILS PERCENT AUTO 86 % (41-73); Platelet Count 380 K/mm3 (150-400); RDW Coefficient Variation 14.1 % (11.7-14.2); RDW Standard Deviation 44.4 fL (35.1-46.3); Red Blood Cell Count 3.34 M/mm3 (4.30-5.90); White Blood Cell Count 24.77 K/mm3 (4.00-11.30)
[2023-05-13 05:09] LABS: Bun/Creatinine Ratio 24.2 (12.0-20.0); Creatinine, Blood 0.7 mg/dL (0.60-1.20); Potassium, Blood 4.2 mmol/L (3.5-5.5)
--- NOTE | 2023-05-13 06:18 | NUR ---
SHIFT SUMMARY: PT HAS HAD NOT ACUTE CHANGES NOTED DURING THIS SHIFT. MILD PAIN NOTED AT PEG TUBE SITE WHEN LYING FLAT BUT SUBSIDES WHEN SITTING UP SLIGHTLY IN BED. PO MEDICATIONS GIVEN WITH SIP OF WATER. PT STARTED ON MAINTIANCE FLUIDS DUE TO SOFT BP'S AND NPO STATUES. BP'S CONTINUE TO BE SOFT, MAP 65-68. PO MIDODRINE STARTED. PT ABLE TO TAKE WHOLE WITH SIP OF WATER. ASYMPTOMATIC WITH SOFT BP'S. CALL LIGHT IN REACH. BED IN LOW POSITION.
--- NOTE | 2023-05-13 08:20 | NUR ---
ASSUMED CARE / DR DEAN: ASSUMED CARE OF THIS PT AT APPROX 0700. ON ASSESSMENT, THE PT IS AWAKE, A&O TO ALL. HE IS PLEASANT & COOPERATIVE W/ CARE BUT DOES EXPRESS CONCERNS REGARDING LEARNING ABOUT NEW PEG TUBE. LS CLEAR, PT ON RA W/ O2 SATS > 95%. MONITOR SHOWS AFIB W/ HR 100s. SBP 80-90s, MAP > 65 ON AVG. THE PT HAS BEEN NPO S/P PEG TUBE PLACEMENT YESTERDAY. DENIES GI OR COMPLAINTS, CONTINENT OF BOTH BOWEL & BLADDER. SKIN CONDITION OVERALL INTACT. PT REPOSITIONS SELF IN BED PRN FOR COMFORT. NEW PEG TUBE SITE WNL; NO BLEEDING, REDNESS OR IRRITATION NOTED. PROVIDER AT BEDSIDE TO EVAL PT THIS AM. HE STS OKAY TO BEGIN USING PEG TUBE & WOULD LIKE DIETARY CONSULTED TO ORDER TUBE FEEDINGS. 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 NO OTHER CHANGES AT THIS TIME. WILL CONTINUE TO MONITOR & UPDATE NEEDED.
--- NOTE | 2023-05-13 09:20 | NUR ---
Lizz TREJO & GENEVIEVE: PROVIDERS HAVE BOTH BEEN AT BEDSIDE THIS AM TO EVAL PT. IVFs ORDERED TO BE DISCONTINUED & PARAMETERS REGARDING METOPROLOL ADMIN HAVE BEEN DISCUSSED R/T HYPOTENSION & MIDODRINE ORDERS. DR VALLEJO STS HE WILL REVIEW THE PT's ORDERS & ADJUST MEDS NEEDED SO THAT THEY MAY BE GIVEN THROUGH THE PEG TUBE. NO OTHER CHANGES AT THIS TIME.
--- NOTE | 2023-05-13 15:35 | NUR ---
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 See H&P for complete information. Pt sitting up in chair and also in chair at bedside. They were agreeable to a visit. Pt is awaiting biopsy results after surgical procedure yesterday for g-tube placement. Pt found with a lot of food/matter in esophagus and gastric mass nearly obstructing. Pt able to verbalize good understanding but states "it just isn't quite real yet". We discussed advanced care planning, AD, POLST forms, proxy medical decision maker and his wishes. He is not certain he would like to remain a full code at this time but understands that the orders in place are FULL CODE and is in agreement with leaving orders as is while he considers further. Reading materials provided to generate questions for his providers. Booklet, Hard Choices for [place] [employer] given and blank AD/POLST forms to review. I offered to help them complete AD if they would like. Time spent on assessment. Pt reports generalized aches and pains. He had an inguinal hernia repair approx 2 weeks ago and has chronic right shoulder pain. He declined any intervention as this discomfort is near baseline for him. We briefly discussed d/c planning re: having HH for f/u teaching of gtube use and care. Pt and expressed appreciation for the visit and are anxious to have biopsy results and next steps planned. I invited them to have staff contact us if they would like palliative care to make a return visit.
--- NOTE | 2023-05-13 18:40 | NUR ---
SHIFT SUMMARY: NO ACUTE CHANGES SINCE PRIOR UPDATES. PT REMAINS A&O, PLEASANT & COOPERATIVE. HE SEEMS IN GOOD SPIRITS THIS EVENING DESPITE HAVING MANY IN-DEPTH CONVERSATIONS & NEW EDUCATION REGARDING PEG TUBE USE. HE IS MOSTLY INDEPENDENT IN ROOM W/ SETUP ASSIST FOR CARE MEASURES, USING CALL LIGHT APPROPRIATELY PRN FOR ASSISTANCE. LS DIM IN BASES, PT REMAINS ON RA W/ O2 SATS > 95%. MONITOR SHOWS AFIB W/ HR 100-110s, SBP 90s, PT ASYMPTOMATIC. METOPROLOL HELD PER VS OUTSIDE OF PARAMETER, MIDODRINE HELD PER CJ. PT STARTED ON TUBE FEEDINGS THROUGH PEG TUBE THIS EVENING PER DIETARY ORDERS. TUBE FEED STOPPED AFTER APPROX 100 ML R/T PT REPORTING "FULLNESS" & DISCOMFORT. NO BM THIS SHIFT. VOIDS URINE W/O DIFFICULTY. SKIN CONDITION OVERALL INTACT, PEG TUBE SITE WNL; NO BLEEDING, REDNESS OR IRRITATION NOTED. WILL CONTINUE TO MONITOR & REPORT OFF TO ONCOMING RN.
--- NOTE | 2023-05-13 20:44 | NUR ---
ASSUMED PT CARE FROM JOSIAH KNOX ON . A&OX4. DENIES ANY CHEST PAIN/PRESSURE, SOB, OR NAUSEA THIS EVENING. STATES HE HAS CONTINUED TO SPIT UP PHLEGM, WHICH HAS BEEN DOING. HR IS SR/ST IN THE 80-100'S. BP SOFT WITH MAP > 65. O2 SATS > 92% WITH RESPIRATIONS EVEN AND UNLABORED. PEG TUBE IN PLACE, EVENING TUBE FEEDINGS STARTED. EDUCATION PROVIDED, WILL CONTINUE TO REINFORCE. INSTRUCTED TO CALL IF HIS STOMACH FEELS FULL. CALL LIGHT IN REACH.
[2023-05-14] VITALS (11 sets, daily range): BP systolic 76–115; BP diastolic 51–76
--- NOTE | 2023-05-14 01:50 | NUR ---
RECEIVED ORDER FOR PRN MIDODRINE DUE TO MAP < 65. WILL MONITOR BP.
[2023-05-14 04:34] LABS: Bun/Creatinine Ratio 31.2 (12.0-20.0); Calcium, Blood 8.7 mg/dL (8.5-10.1); Creatinine, Blood 0.64 mg/dL (0.60-1.20); Magnesium, Blood 2.2 mg/dL (1.6-2.4); Phosphorus, Blood 2.1 mg/dL (2.5-4.9)
--- NOTE | 2023-05-14 05:27 | NUR ---
SHIFT SUMMARY: PT TOLERATED PEG TUBE FEEDING WITHOUT PAIN OR NAUSEA. MEDICATIONS GIVEN THROGUH PEG TUBE WITHOUT DIFFICULTY. BP REMAINS SOFT WITH MAP > 65. CALL LIGHT IN REACH. BED IN LOW POSITION.
--- NOTE | 2023-05-14 08:30 | NUR ---
ASSUMED CARE: REPORT RECEIVED FROM ABILIO SPRING. ASSUMED CARE OF THIS PT AT APPROX 0700. ON ASSESSMENT, THE PT IS AWAKE, A&O TO ALL. HE IS AMBULATING INDEPENDENTLY IN THE ROOM & REQUIRING ONLY SETUP FOR CARE MEASURES. LS CLEAR, PT ON RA W/ O2 SATS > 95%. MONITOR SHOWS AFIB W/ BBB, HR 80-110s, INCREASED W/ EXERTION. BP SOFT W/ SBP 90s, MAP > 65 ON AVG. ASYMPTOMATIC OF THIS W/ NO DIZZINESS OR LIGHTHEADEDNESS REPORTED. PEG TUBE IN PLACE TO LEFT ABDOMEN IS CLAMPED BETWEEN BOLUS FEEDS. PT TOLERATING FEEDS WELL W/ NO C/O NAUSEA OR ABD DISCOMFORT. PT REPORTS NO BM SINCE PEG TUBE PLACEMENT BUT STS PASSING SMALL AMNTS FLATUS. VOIDS URINE W/O DIFFICULTY. SKIN OVERALL INTACT, PT REPOSITIONS SELF FOR COMFORT PRN. PEG TUBE SITE REMAINS WNL; NO REDNESS OR IRRITATION NOTED. PRIOR HERNIA REPAIR SURGICAL SITE TO RIGHT GROIN IS WNL; APPEARS TO BE HEALING WELL W/ NO DRAINAGE OR REDNESS NOTED. THE PT HAS BEEN EDUCATED R/T IGNITION SOURCES & RISK OF INJURY WHILE OXYGEN IS IN USE. PT DENIES SMOKING & VERBALIZES UNDERSTANDING. WILL CONTINUE TO MONITOR & UPDATE NEEDED.
--- NOTE | 2023-05-14 09:30 | NUR ---
DR TREJO: PROVIDER AT BEDSIDE THIS AM TO ABHI PT. DISCUSSED CONTINUED LOW SBP READING 90s & UNABLE TO GIVE SCHEDULED LOPRESSOR DUE TO HOLDING PARAMETERS. HE STS TO GIVE LOPRESSOR DOSES IF MAP > 65, ORDERS ADJUSTED TO REFLECT NEW HOLDING PARAMETERS. MIDODRINE DISCONTINUED & THE PT IS NOW SURGICAL STATUS W/ TELE. NOTIFIED PROVIDER THAT THE SAT TUTOR SHOULD BE COMING TO WORK W/ THE PT THIS SHIFT REGARDING FURTHER PEG TUBE & FEEDING INSTRUCTIONS/ EDUCATION. NO OTHER CHANGES AT THIS TIME.
--- NOTE | 2023-05-14 18:30 | NUR ---
ASSUMED CARE AT 1500, REPORT FROM JOSIAH. Tonya/Tonya/OX4, FAMILY AT BEDSIDE. SIPS ON CLEAR FLUIDS PER ORDERS, TUBE FEEDING ORDERED, TOLERATED WELL. TUBE PLACEMENT SITE DRY WITHOUT REDNESS OR DRAINAGE. BP SOFT, MD AWARE. MEDICATED PER PARAMETERS IN EVENING WITH METOPROLOL FOR HEART. AMBULATES WITH ROOM WITH STEADY GAIT, WILL CONTINUE TO MONITOR AND TREAT UNTIL CHANGE OF SHIFT.
[2023-05-15] VITALS (10 sets, daily range): BP systolic 72–98; BP diastolic 56–64
[2023-05-15 03:50] LABS: Hematocrit 27.7 % (37.0-53.0); Hemoglobin 8.8 g/dL (13.5-17.5); Mean Corpuscular HGB Conc 31.8 g/dL (31.5-36.5); Mean Corpuscular Volume 85 fL (80-100); Mean Platelet Volume 11.5 fL (9.1-12.4); Platelet Count 349 K/mm3 (150-400); RDW Coefficient Variation 14.1 % (11.7-14.2); RDW Standard Deviation 43.9 fL (35.1-46.3); Red Blood Cell Count 3.26 M/mm3 (4.30-5.90); White Blood Cell Count 24.63 K/mm3 (4.00-11.30)
--- NOTE | 2023-05-15 04:15 | NUR ---
T/F AND SUMMARY: REPORT RECIEVED FROM CIERA, DRAFTER CONSTRUCTION AND PT T/F VIA BED TO ROOM 332 AT 0400. REVIEWED AND AGREE TO NOCTE SHIFT ASSESSMENT FINDINGS. HE REMAINS A/OX4, IS SBA OOB FOR WEAKNESS AND CALLS APPROPRIATELY FOR ASSIST PRN. PT DENIES N/V AND ABDO DISCOMFORT/DISTENSION. PEG TUBE CLAMPED W/BOLUS TF'S TO BE RECIEVED PER RX'D SCHEDULE. CLEAR LIQ'S OK FOR SATIATION TOLERATED. TELEMETRY INTACT: PT IS A.FIB/A.FLUTTER AT 90'S-100'S BPM. BP'S REMAIN SOFT BUT PT IS ASYMPTOMATIC OF ALL S/S CARDIAC DISTRESS AND MAP>65. PLAN FOR D/C W/HOME HEALTH W/CONTINUED EDUCATION TO BE PROVIDED RE: TF PROCEDURE AND SCHEDULE, WILL ENSURE DAY STAFF ARE AWARE. NO ACUTE CHANGES, VSS/AFEBRILE. WCTM AND REPORT TO DAY RN.
[2023-05-15 04:21] LABS: Bun/Creatinine Ratio 29.2 (12.0-20.0); Calcium, Blood 8.5 mg/dL (8.5-10.1); Creatinine, Blood 0.65 mg/dL (0.60-1.20); Magnesium, Blood 2.1 mg/dL (1.6-2.4); Phosphorus, Blood 1.5 mg/dL (2.5-4.9); Potassium, Blood 3.9 mmol/L (3.5-5.5)
--- NOTE | 2023-05-15 05:02 | NUR ---
TRANSFER OF CARE NOTE GAVE REPORT TO MED FLOOR ABILIO GIRON ~0350 THIS AM. PT REMAINS A/Ox4 AND COOPERATIVE WITH CARE. ANSWERS QUESTIONS AND IS ABLE TO MAKE HIS NEEDS KNOWN. CARDIAC, REMAINS IN AFIB 70-90'S WITH NO C/O CP OR PRESSURE T/O THE NIGHT. SBP REMAINS SOFT AVERAGING IN THE 80-90'S, BUT MAP >65. DENIES ANY DIZZINESS OR PALPATIONS WITH ABULATION. RESPIRATORY, MAINTAINS SPO2 >90% ON RA WITH NO REPORTS OF SOB OR DYSPNEA. CONTINUES TO REPORT COUGHING UP THICK WHITE SPUTUM. GI/, PEG TUBE REMAINS PATENT AND FLUSHES WELL. PT TOLERATING TF WELL WITH NO REPORTS OF ABD DISCOMFORT OR N/V. TF ADMINISTERED PER ORDERS. ABD SOFT/NONTENDER, WITH BS PRESENT IN ALL QUADRANTS. ABLE ABULATE TO BRP WITH SBA. PT EDUCATED ON COMMON SOURCES OF IGNITION WELL NEED TO KEEP A SAFE ENVIRONMENT. PT VOICED UNDERSTANDING. NEW ORDERS AT THIS TIME. BARBIE LIMA UPON TRANSFER TO ROOM 332.
--- NOTE | 2023-05-15 07:28 | NUR ---
ASSUMED CARE OF PT- BEDSIDE REPORT COMPLETED. PT SLEEPING AT THE TIME OF BEDSIDE REPORT. PER REPORT PEG TUBE PATENT, KANGAROO PUMP AT THE BEDSIDE FOR TUBE FEEDINGS. FIRST FEEDING AT 0800. PT HAS A STAT ORDER FOR SODIUM PHOS AWAITING ARRIVAL FROM PHARMACY. NO S&S OF DISTRESS NOTED AT THE TIME OF REPORT.
--- NOTE | 2023-05-15 10:25 | NUR ---
CALLED DR BRINK- SPOKE TO DR DR VALLEJO, PT SBP 81 MAP 66. ORDER TO HOLD METOPROLOL FOR MAP LESS THAN 65. SPOKE TO , THE PT HAS SODIUM PHOS RUNNING AT 102ML/HR THAT MAY BE ELEVATING THE PRESSURE A LITTLE. RECIEVED AN ORDER TO HOLD THIS DOSE.
[2023-05-15] MEDS ORDERED: METO25 PO ×2 (11:17→11:18)
--- NOTE | 2023-05-15 14:23 | NUR ---
CALLED DR MCCLENDON- PT SODIUM PHOS WAS COMPLETED, WAITED 40 MIN TO AN HOUR POST IVF AND RECHECKED VITALS SBP 72/46 NOW. AWARE AND WILL COME SEE THE PT.
--- NOTE | 2023-05-15 19:42 | NUR ---
DISCHARGE NOTE- PT WAS GIVEN VERBAL AND WRITTEN DISCHARGE INSTRUCTIONS AND ACKNOWLEDGED UNDERSTANDING OF THEM.PT SPOUSE WAS PRESENT FOR DISCHARGE TEACHING IV AND TELE DC'D PRIOR TO DISCHARGE BY THE SQUEEZER OPERATOR. TUBE FEEDING COMPLETED PRIOR TO DISCHARGE HOME. PT UNABLE TO FARM [employer]ODUCTS SHIPPER METOPROLOL UNTIL TOMORROW MORNING. SPOKE TO DR TREJO, RECIEVED ORDER TO GIVE EVENING DOSE OF METOPROLOL PRIOR TO DISCHARGE IF THE PT MAP IS GREATER THAN 63. PT MAP WAS 65. MED WAS GIVEN, TUBE FEEDING COMPLETED AND PT WAS ESCORTED OUT VIA WC BY THE SQUEEZER OPERATOR. NO S&S OF DSISTRESS AT THE TIME OF DISCHARGE. MEDS REFAXED TO [facility] ON [address] PER PT REQUEST.
== END 2023-05-15 18:25 | disposition home health service (06) | DRG 374 ==
LOC: ER 09:10 → ICUE 13:23 → PCU 13:23 → MEDS 13:23 → ICUE 05-09 18:49 → PCU 05-10 20:01 → MEDS 05-15 03:57 → ENPENDDIS 05-15 10:30 → MEDS 05-15 18:25
PROVIDERS: Family Medicine; Physician Assistant; Surgery; ADMIT Internal Medicine
PROC: 3E03329 Introduction of Other Anti-infective into Peripheral Vein, Percutaneous Approach (ICD-10-PCS; principal; 2023-05-05)
PROC: 0DB98ZX Excision of Duodenum, Via Natural or Artificial Opening Endoscopic, Diagnostic (ICD-10-PCS; 2023-05-09)
PROC: 0DB48ZX Excision of Esophagogastric Junction, Via Natural or Artificial Opening Endoscopic, Diagnostic (ICD-10-PCS; 2023-05-09)
PROC: 0DH63UZ Insertion of Feeding Device into Stomach, Percutaneous Approach (ICD-10-PCS; 2023-05-12)
DX: C16.0 Malignant neoplasm of cardia (principal); A41.9 Sepsis, unspecified organism; N99.842 Postprocedural seroma of a genitourinary system organ or structure following a genitourinary system procedure; I50.22 Chronic systolic (congestive) heart failure; I48.20 Chronic atrial fibrillation, unspecified; E44.0 Moderate protein-calorie malnutrition; R04.2 Hemoptysis; Z51.5 Encounter for palliative care; R13.19 Other dysphagia; D64.9 Anemia, unspecified; R00.1 Bradycardia, unspecified; I11.0 Hypertensive heart disease with heart failure; K21.9 Gastro-esophageal reflux disease without esophagitis; Z79.01 Long term (current) use of anticoagulants; Z79.899 Other long term (current) drug therapy; Z98.890 Other specified postprocedural states; Z86.73 Personal history of transient ischemic attack (TIA), and cerebral infarction without residual deficits; Z88.2 Allergy status to sulfonamides; Z68.22 Body mass index [BMI] 22.0-22.9, adult
CPT/HCPCS: 36415; 71046; 71260; 74177; 80048; 80053; 81001; 82607; 82728; 82746; 83540; 83550; 83605; 83735; 83880; 84100; 84443; 84484; 85014; 85018; 85025; 85027; 85060; 87040; 88305; 88341; 88342; 88360; 92526; 92610; 93005; 93010; 93246; 96361; 96365-59; 99285-25; A9270; C9113; J0461; J0690; J2001; J2250; J2371; J2405; J2543; J2704; J7030; J7060; J7120; Q9967

== ENCOUNTER 2023-05-22 21:10 | Emergency (ER) | payer BC, MEDICARE ==
[~2023-05-22] VITALS: Ht 170.2 cm; Wt 59.0 kg
[~2023-05-22 21:10] MED LIST changes: +FURO20 PO
[2023-05-22 21:55] LABS: BASOPHILS PERCENT AUTO 0 % (0-2); EOSINOPHILS ABSOLUTE AUTO 0.99 K/mm3 (0.00-0.68); EOSINOPHILS PERCENT AUTO 4 % (0-6); Hematocrit 25.9 % (37.0-53.0); Hemoglobin 8.1 g/dL (13.5-17.5); IMMATURE GRAN ABSOLUTE AUTO 0.18 K/mm3 (0.00-0.10); IMMATURE GRAN PERCENT AUTO 1 % (0-1); LYMPHOCYTES ABSOLUTE AUTO 1.01 K/mm3 (0.84-5.20); LYMPHOCYTES PERCENT AUTO 4 % (21-46); MONOCYTES ABSOLUTE AUTO 1.58 K/mm3 (0.16-1.47); MONOCYTES PERCENT AUTO 6 % (4-13); Mean Corpuscular HGB 26.6 pg (26.0-34.0); Mean Corpuscular HGB Conc 31.3 g/dL (31.5-36.5); Mean Corpuscular Volume 85 fL (80-100); Mean Platelet Volume 10.5 fL (9.1-12.4); NEUTROPHILS ABSOLUTE AUTO 23.28 K/mm3 (1.96-9.15); NEUTROPHILS PERCENT AUTO 86 % (41-73); Platelet Count 368 K/mm3 (150-400); RDW Coefficient Variation 14.6 % (11.7-14.2); RDW Standard Deviation 45.1 fL (35.1-46.3); Red Blood Cell Count 3.05 M/mm3 (4.30-5.90); White Blood Cell Count 27.14 K/mm3 (4.00-11.30)
[2023-05-22 22:13] LABS: Albumin, Blood 2.5 g/dL (3.4-5.0); Albumin/Globulin Ratio 0.6 (0.8-1.8); Bilirubin, Total 0.5 mg/dL (0.1-1.0); Bun/Creatinine Ratio 24.9 (12.0-20.0); Creatinine, Blood 0.8 mg/dL (0.60-1.20); Globulin, Blood 4.2 g/dL (2.2-4.0); Potassium, Blood 4.6 mmol/L (3.5-5.5); Total Protein, Blood 6.7 g/dL (6.4-8.2)
[2023-05-22 23:30] LABS: International Normalized Ratio 1.19; Prothrombin Time Results 12.4 Sec (9.7-11.5)
[2023-05-23 00:45] VITALS: BP 91/60
[2023-05-23 02:06] LABS: Hematocrit 23.2 % (37.0-53.0); Hemoglobin 7.4 g/dL (13.5-17.5); Mean Corpuscular HGB 27.1 pg (26.0-34.0); Mean Corpuscular HGB Conc 31.9 g/dL (31.5-36.5); Mean Corpuscular Volume 85 fL (80-100); Mean Platelet Volume 10.4 fL (9.1-12.4); Platelet Count 317 K/mm3 (150-400); RDW Coefficient Variation 14.6 % (11.7-14.2); Red Blood Cell Count 2.73 M/mm3 (4.30-5.90); White Blood Cell Count 24.81 K/mm3 (4.00-11.30)
== END 2023-05-23 02:21 | disposition short-term general hospital (02) ==
LOC: ER 21:10
PROVIDERS: Emergency Medicine; Student in an Organized Health Care Education/Training Program
DX: K92.0 Hematemesis (principal); D62 Acute posthemorrhagic anemia; E86.0 Dehydration; D49.0 Neoplasm of unspecified behavior of digestive system; T45.515A Adverse effect of anticoagulants, initial encounter; Z88.2 Allergy status to sulfonamides; Z79.899 Other long term (current) drug therapy; I48.91 Unspecified atrial fibrillation; I11.0 Hypertensive heart disease with heart failure; I50.9 Heart failure, unspecified
CPT/HCPCS: 36430; 80053; 85025; 85027; 85610; 85730; 86850; 86900; 86901; 86923; 93005; 93010; 96361; 96365; 96375; 99285-25; C9113; J0780; J2270; J2405; J7030; J7168; P9016

== ENCOUNTER 2023-06-06 07:36 | Day surgery (SDC) | payer BC, MEDICARE ==
[2023-06-06] VITALS (10 sets, daily range): BP systolic 98–121; BP diastolic 69–87
[~2023-06-06] VITALS: Ht 170.2 cm; Wt 59.7 kg
[~2023-06-06 07:36] MED LIST changes: +ONDA4ODT MM
--- NOTE | 2023-06-06 08:41 | NUR ---
TO SDS VIA WC. PT AMBULATES WELL. History, Chart, Medications and Allergies reviewed before start of procedure. Lungs clear T/O to Auscultation. Patient confirms NPO status and agrees with scheduled surgery. Pre-Op teaching done. Pt verbalizes understanding. Patient States Post-Procedure ride home has been arranged. PT BELONGINGS PLACED UNDERNEATH GURNEY FOR SAFEKEEPING. PT GLASSES GIVEN TO FOR SAFEKEEPING.
--- NOTE | 2023-06-06 11:10 | NUR ---
Patient up to Ambulate independently. ABLE TO BEAR WEIGHT AND SELF TRANSFER BUT TOO WEAK TO WALK LONG DISTANCES. Discharge instructions reviewed with patient. Patient verbalizes understanding. Copy given to patient to take home. Discharged via wheelchair to private car for ride home W/ AND GRAND DAUGHTER
== END 2023-06-06 11:00 | disposition home or self-care (01) ==
LOC: ORD 07:36 → ORSCMMR 07:36 → ORD 10:00
PROVIDERS: Surgery
PROC: 0JH63WZ Insertion of Totally Implantable Vascular Access Device into Chest Subcutaneous Tissue and Fascia, Percutaneous Approach (ICD-10-PCS; principal; 2023-06-06 09:00)
PROC: B543ZZA Ultrasonography of Right Jugular Veins, Guidance (ICD-10-PCS; principal; 2023-06-06 09:00)
PROC: 05HM33Z Insertion of Infusion Device into Right Internal Jugular Vein, Percutaneous Approach (ICD-10-PCS; principal; 2023-06-06 09:00)
DX: C15.9 Malignant neoplasm of esophagus, unspecified (principal); I48.91 Unspecified atrial fibrillation; Z79.01 Long term (current) use of anticoagulants; Z86.73 Personal history of transient ischemic attack (TIA), and cerebral infarction without residual deficits; I50.9 Heart failure, unspecified; K21.9 Gastro-esophageal reflux disease without esophagitis; Z79.899 Other long term (current) drug therapy; I10 Essential (primary) hypertension; I25.2 Old myocardial infarction; G62.9 Polyneuropathy, unspecified
CPT/HCPCS: 77001; C1788; J0330; J0690; J1100; J1642; J2371; J2405; J2704; J2765; J7120